=== PATIENT | male | born 1970 | race Caucasian/White ===

== ENCOUNTER 2017-08-27 10:34 | Emergency (ER) | payer OTHER ==
[~2017-08-27] VITALS: Ht 180.3 cm; Wt 96.0 kg
[~2017-08-27 10:34] MED LIST: ASPI325T PO; BENZAPRIL; COUM10TA PO; GLUCTAB PO; HYDR-2768 PO; LOVENOX SQ; TAB-TAB PO
[2017-08-27 10:41] VITALS: BP 89/58; PULSE 108; RESP 16; TEMP 99.3; O2SAT 98
[2017-08-27] MEDS ORDERED: METF500T PO (10:50)
[2017-08-27] MEDS ORDERED: HYDR25TA5 PO (10:50)
[2017-08-27] MEDS ORDERED: ASPI-183 PO (10:50)
[2017-08-27] MEDS ORDERED: COUM4TAB PO (10:50)
[2017-08-27] MEDS ORDERED: BENA10TA PO (10:50)
[2017-08-27] MEDS ORDERED: VICT18IN SQ (10:50)
[2017-08-27] MEDS ORDERED: SODIUM CHLOR 0.9% 1000 ML INJ 1,000 ML IV ONE ×2 (10:56→13:00)
[2017-08-27] MEDS ORDERED: SODIUM CHLORIDE 0.9% FLUSH 10 ML FLUSH IVF PRN (11:00)
--- NOTE | 2017-08-27 11:01 | PD ---
HPI Chief Complaint: General Weakness Time Seen by Provider: 10:56 Travel History International Travel<30 days: No Contact w/Intl Traveler<30days: No Traveled to known affect area: No History of Present Illness HPI 47-year-old male patient with history of previous right leg femoral stents, Sharon brown, on Coumadin, multiple medical issues, presents to the ER today because he states that he has had flulike symptoms for the past week, and for the last 3 days of been feeling very lightheaded, generally weak. He denies any vomiting, diarrhea, black stools, chest pains, shortness of breath, or other symptoms. He states he probably has not been eating and drinking enough. He has been feeling and he is going to pass out with exertion and when EMS got there, his blood pressure was 60 systolic initially. He was given a liter of IV fluids. Modifying Factors: None Associated Signs & Symptoms: Lightheadedness, general weakness, flulike symptoms , hypotension Risk Factors: None PFSH Past Medical History Heart Rhythm Problems: Yes Diabetes: Yes Patient Takes Glucophage: Yes Diminished Hearing: No Genitourinary: Yes (PROTEINURIA) Hypertension: Yes Sleep Apnea: Yes Tetanus Vaccination: > 5 Years Influenza Vaccination: No Past Surgical History Abdominal Surgery: Yes Cardiac Surgery: Yes (STENTS RLE X11) Cholecystectomy: Yes (CHOLECYSTECTOMY 1995) Other Surgery: Yes (VASCULAR SURG TO R LEG X2, ONLY HAS 1 ARTERY, LLE HARVEST SITE FOR RLE) Social History Alcohol Use: No Tobacco Use: No (QUIT 07/2006) Substance Use: No Allergies-Medications (Allergen,Severity, Reaction): Coded Allergies: sulfamethoxazole (Unverified Allergy, Mild, 08/27/17) trimethoprim (Unverified Allergy, Mild, 08/27/17) Uncoded Allergies: PLASMA (Allergy, Severe, Rash, 08/27/17) Reported Meds & Prescriptions Reported Meds & Active Scripts Active Reported Benazepril (Benazepril HCl) 10 Mg Tab 10 Mg PO DAILY Hydrochlorothiazide 25 Mg Tab 25 Mg PO DAILY Aspirin 325 Mg Tab 325 Mg PO DAILY Coumadin (Warfarin) 4 Mg Tab 8 Mg PO DAILY Victoza Inj (Liraglutide Inj) 18 Mg/3 Ml Pen 0.8 Mg SQ ONCE Metformin (Metformin HCl) 500 Mg Tab 500 Mg PO BIDPC Review of Systems Except as stated in HPI: all other systems reviewed are Neg Physical Exam Narrative GENERAL: Well-developed middle age male patient currently in mild distress. Awake and oriented 3. SKIN: Focused skin assessment warm/dry. HEAD: Atraumatic. Normocephalic. EYES: Pupils equal and round. No scleral icterus. No injection or drainage. ENT: No nasal bleeding or discharge. Mucous membranes pink and moist. NECK: Trachea midline. No JVD. Supple. CARDIOVASCULAR: Regular rate and rhythm. No murmur appreciated. RESPIRATORY: No accessory muscle use. Clear to auscultation. Breath sounds equal bilaterally. GASTROINTESTINAL: Abdomen soft, non-tender, nondistended. Hepatic and splenic margins not palpable. MUSCULOSKELETAL: No obvious deformities. No clubbing. No cyanosis. No edema. NEUROLOGICAL: Awake and alert. No obvious cranial nerve deficits. Motor grossly within normal limits. Normal speech. PSYCHIATRIC: Appropriate mood and affect; insight and judgment normal. Data Data Last Documented VS Vital Signs Date Time Temp Pulse Resp B/P (MAP) Pulse Ox O2 Delivery O2 Flow Rate FiO2 08/27/17 14:13 97 16 121/66 (84) 100 16 141/75 (97) 08/27/17 14:05 98 Room Air 08/27/17 13:37 99.9 Orders Orders Electrocardiogram (08/27/17 10:56) Complete Blood Count With Diff (08/27/17 10:56) Comprehensive Metabolic Panel (08/27/17 10:56) Magnesium (Mg) (08/27/17 10:56) Ckmb (Isoenzyme) Profile (08/27/17 10:56) Troponin I (08/27/17 10:56) Act Partial Throm Time (Ptt) (08/27/17 10:56) Prothrombin Time / Inr (Pt) (08/27/17 10:56) Urinalysis - C+S If Indicated (08/27/17 10:56) Chest, Single Ap (08/27/17 10:56) Ecg Monitoring (08/27/17 10:56) Iv Access Insert/Monitor (08/27/17 10:56) Oximetry (08/27/17 10:56) Sodium Chloride 0.9% Flush (Ns Flush) (08/27/17 11:00) Sodium Chlor 0.9% 1000 Ml Inj (Ns 1000 M (08/27/17 10:56) Sepsis Workup Initiated (08/27/17 ) Lactic Acid Sepsis Protocol (08/27/17 10:56) Influenzae A/B Antigen (08/27/17 10:56) Blood Culture (08/27/17 10:56) Sodium Chlor 0.9% 1000 Ml Inj (Ns 1000 M (08/27/17 13:00) Ed Discharge Order (08/27/17 14:20) Labs Laboratory Tests Test 08/27/17 11:20 08/27/17 12:50 White Blood Count 7.0 TH/MM3 Red Blood Count 4.54 MIL/MM3 Hemoglobin 13.9 GM/DL Hematocrit 39.7 % Mean Corpuscular Volume 87.5 FL Mean Corpuscular Hemoglobin 30.7 PG Mean Corpuscular Hemoglobin Concent 35.1 % Red Cell Distribution Width 13.7 % Platelet Count 165 TH/MM3 Mean Platelet Volume 7.1 FL Neutrophils (%) (Auto) 65.4 % Lymphocytes (%) (Auto) 18.2 % Monocytes (%) (Auto) 10.0 % Eosinophils (%) (Auto) 2.5 % Basophils (%) (Auto) 3.9 % Neutrophils # (Auto) 4.6 TH/MM3 Lymphocytes # (Auto) 1.3 TH/MM3 Monocytes # (Auto) 0.7 TH/MM3 Eosinophils # (Auto) 0.2 TH/MM3 Basophils # (Auto) 0.3 TH/MM3 CBC Comment DIFF FINAL Differential Comment Prothrombin Time 16.5 SEC Prothromb Time International Ratio 1.6 RATIO Activated Partial Thromboplast Time 33.9 SEC Blood Urea Nitrogen 10 MG/DL Creatinine 0.98 MG/DL Random Glucose 118 MG/DL Total Protein 6.8 GM/DL Albumin 3.0 GM/DL Calcium Level 7.9 MG/DL Magnesium Level 1.8 MG/DL Alkaline Phosphatase 64 U/L Aspartate Amino Transf (AST/SGOT) 14 U/L Alanine Aminotransferase (ALT/SGPT) 22 U/L Total Bilirubin 0.3 MG/DL Sodium Level 133 MEQ/L Potassium Level 3.7 MEQ/L Chloride Level 97 MEQ/L Carbon Dioxide Level 28.4 MEQ/L Anion Gap 8 MEQ/L Estimat Glomerular Filtration Rate 81 ML/MIN Lactic Acid Level 2.3 mmol/L Total Creatine Kinase 59 U/L Troponin I LESS THAN 0.02 NG/ML Urine Color YELLOW Urine Turbidity CLEAR Urine pH 5.5 Urine Specific [place] 1.007 Urine Protein NEG mg/dL Urine Glucose (UA) NEG mg/dL Urine Ketones NEG mg/dL Urine Occult Blood NEG Urine Nitrite NEG Urine Bilirubin NEG Urine Urobilinogen LESS THAN 2.0 MG/DL Urine Leukocyte Esterase NEG Urine RBC LESS THAN 1 /hpf Urine WBC LESS THAN 1 /hpf Urine Hyaline Casts 7 /lpf Urine Mucus FEW /lpf Microscopic Urinalysis Comment CULT NOT INDICATED MDM Medical Decision Making Medical Screen Exam Complete: Yes Emergency Medical Condition: Yes Medical Record Reviewed: Yes Interpretation(s) EKG shows NSR, no ST elevation or depression, and no arrhythmias. No significant T-wave inversions. Laboratory Tests Test 08/27/17 11:20 08/27/17 12:50 Monocytes (%) (Auto) 10.0 % (0.0-8.0) Basophils (%) (Auto) 3.9 % (0.0-2.0) Basophils # (Auto) 0.3 TH/MM3 (0-0.2) Prothrombin Time 16.5 SEC (9.8-11.6) Activated Partial Thromboplast Time 33.9 SEC (24.3-30.1) Random Glucose 118 MG/DL (74-106) Albumin 3.0 GM/DL (3.4-5.0) Calcium Level 7.9 MG/DL (8.5-10.1) Aspartate Amino Transf (AST/SGOT) 14 U/L (15-37) Sodium Level 133 MEQ/L (136-145) Chloride Level 97 MEQ/L (98-107) Estimat Glomerular Filtration Rate 81 ML/MIN (>89) Lactic Acid Level 2.3 mmol/L (0.4-2.0) Troponin I LESS THAN 0.02 NG/ML Urine Mucus FEW /lpf (OCC) Differential Diagnosis Lightheadedness, hypotension, weakness: Influenza versus dehydration versus sepsis versus metabolic issues Narrative Course EKG did not show any signs of significant dysrhythmias or ST changes. Lab work shows no significant leukocytosis. There is not notable lactate elevation likely secondary to dehydration. Patient was given boluses of IV fluids in the ER with improvement in blood pressure. After 2 L of IV fluid, he has walking around without issues. At this point, I suspect that he may have a lateral syndrome with underlying dehydration. He also took his blood pressure medications this morning which may be worsening the issues. Planning to release the patient would follow-up to primary care physician. We will hold his blood pressure medications for the next several days until he can talk to his primary care doctor. Return for any worsening in symptoms as needed. Keep hydrated, drink plenty of fluids. The plan once discussed with him he states understanding. Diagnosis Primary Impression: Lightheadedness Med/Other Pt SpecificInfo: Med Stopped (Hold blood pressure medications until seen by primary care doctor, in the next few days) Disposition: 01 DISCHARGE HOME Condition: Stable Simon Alvarez MD Aug 27, 2017 11:01
[2017-08-27 11:02] VITALS: RESP 20; O2SAT 97
[2017-08-27 11:59] LABS: AUTOMATED NEUTROPHIL # 4.6 TH/MM3 (1.8-7.7); BASOPHIL # 0.3 TH/MM3 (0-0.2); BASOPHIL % 3.9 % (0.0-2.0); EOSINOPHIL # 0.2 TH/MM3 (0-0.4); EOSINOPHIL % 2.5 % (0.0-4.0); HEMATOCRIT 39.7 % (39.0-51.0); HEMOGLOBIN 13.9 GM/DL (13.0-17.0); LYMPH % 18.2 % (9.0-44.0); LYMPHOCYTE # 1.3 TH/MM3 (1.0-4.8); MEAN CELL VOLUME 87.5 FL (80.0-100.0); MEAN CORPUSCULAR HEMOGLOBIN 30.7 PG (27.0-34.0); MEAN CORPUSCULAR HGB CONC 35.1 % (32.0-36.0); MEAN PLATELET VOLUME 7.1 FL (7.0-11.0); MONOCYTE # 0.7 TH/MM3 (0-0.9); NEUT % 65.4 % (16.0-70.0); PLATELET COUNT 165 TH/MM3 (150-450); RED BLOOD COUNT 4.54 MIL/MM3 (4.50-5.90); RED CELL DISTRIBUTION WIDTH 13.7 % (11.6-17.2)
[2017-08-27 12:01] LABS: INTERNATIONAL NORMALIZED RATIO 1.6 RATIO; PROTHROMBIN TIME - PATIENT 16.5 SEC (9.8-11.6)
[2017-08-27 12:14] LABS: AST (GOT) 14 U/L (15-37); BICARBONATE 28.4 MEQ/L (21.0-32.0); BLOOD UREA NITROGEN 10 MG/DL (7-18); CALCIUM 7.9 MG/DL (8.5-10.1); CHLORIDE 97 MEQ/L (98-107); CREATININE 0.98 MG/DL (0.60-1.30); GLOMERULAR FILTRATION RATE 81 ML/MIN (>89); GLUCOSE,RANDOM 118 MG/DL (74-106); MAGNESIUM 1.8 MG/DL (1.5-2.5); SODIUM (NA) 133 MEQ/L (136-145)
[2017-08-27 12:16] LABS: LACTIC ACID SEPSIS PROTOCOL 2.3 mmol/L (0.4-2.0)
[2017-08-27 12:20] LABS: ALKALINE PHOSPHATASE 64 U/L (45-117); ALT (GPT) 22 U/L (12-78); TOTAL BILIRUBIN ADULT 0.3 MG/DL (0.2-1.0); TOTAL PROTEIN 6.8 GM/DL (6.4-8.2); TROPONIN I LESS THAN 0.02 NG/ML (0.02-0.05)
[2017-08-27 13:17] LABS: BILIRUBIN, URINE NEG (NEG); BLOOD, URINE NEG (NEG); GLUCOSE,URINE NEG (NEG); HYALINE CAST, URINE 7 /lpf (RARE); KETONE, URINE NEG (NEG); MUCUS URINE FEW /lpf (OCC); NITRITE,URINE NEG (NEG); PH, URINE 5.5 (5.0-8.5); URINE COLOR YELLOW (YELLW/STRAW); URINE LEUKOCYTE ESTERASE NEG (NEG)
[2017-08-27 13:37] VITALS: BP 97/55; PULSE 90; RESP 20; TEMP 99.9; O2SAT 98
--- NOTE | 2017-08-27 13:46 | RADRPT ---
EXAM DATE/TIME: 08/27/2017 11:10 [facility] COMPARISON: No previous studies available for comparison. INDICATIONS : Short of breath, weakness, mid-sternal chest pressure radiating into left upper chest wall. MEDICAL HISTORY : Diabetes mellitus type II. SURGICAL HISTORY : Tibial angio with by-pass right leg. ENCOUNTER: Initial ACUITY: 2 days PAIN SCORE: 6/10 LOCATION: Left chest FINDINGS: The heart is normal in size. The lungs demonstrate mild chronic appearing interstitial changes but ar e otherwise clear. There is no focal or segmental pneumonia. Visualized bony structures are grossly i ntact. This CONCLUSION: 1. No acute cardiopulmonary findings identified. Syed Moore MD on August 27, 2017 at 11:24 Board Certified Radiologist. This report was verified electronically.
[2017-08-27 14:05] VITALS: BP 119/66; PULSE 86; RESP 20; O2SAT 98
[2017-08-27 14:13] VITALS: BP_SYST 121; BP_SYST 141; BP_DIAS 66; BP_DIAS 75; RESP 16
--- NOTE | 2017-08-28 23:23 | EKG ---
Date Performed: 08/27/2017 Time Performed: 10:46:45 PTAGE: 47 years EKG: Sinus rhythm NORMAL ECG PREVIOUS TRACING : 08/16/2007 12.31 Since previous tracing, no significant change noted DOCTOR: Jerome Billy Interpretating Date/Time 08/28/2017 23:22:29
== END 2017-08-27 14:55 | disposition home or self-care (01) ==
LOC: NEPC 10:34
DX: R42 Dizziness and giddiness (principal); R53.1 Weakness; E11.9 Type 2 diabetes mellitus without complications; I10 Essential (primary) hypertension; Z79.01 Long term (current) use of anticoagulants; Z79.82 Long term (current) use of aspirin; Z79.899 Other long term (current) drug therapy; Z88.2 Allergy status to sulfonamides; Z88.8 Allergy status to other drugs, medicaments and biological substances
CPT/HCPCS: 71045; 80053; 81001; 82550; 83605; 83735; 84484; 85025; 85610; 85730; 87040; 87804; 93005; 96360; 96361; 99285; J7030